=== PATIENT | female | born 1985 | race African-American/Black ===

== ENCOUNTER 2017-05-28 21:12 | Emergency (ER) | payer SELFPAY ==
[~2017-05-28] VITALS: Ht 170.2 cm; Wt 67.0 kg
[2017-05-28 21:14] VITALS: BP 173/72; PULSE 71; RESP 15; TEMP 99.4; O2SAT 100
--- NOTE | 2017-05-28 23:14 | PD ---
HPI Chief Complaint: Abdominal Pain Time Seen by Provider: 23:01 Travel History International Travel<30 days: No Contact w/Intl Traveler<30days: No Traveled to known affect area: No History of Present Illness HPI 31yo F presents to the ED with c/o intermittent abdominal pain since January. States she had abnormal papsmear in February and is suppose to have cone biopsy but never did because she has no insurance. Pt has a strong family history of cervical cancer. Denies any fever, chest pain, n/v, dysuria, hematuria, vaginal bleeding or discharge, focal weakness or numbness. PFSH Past Medical History Cancer: Yes (Cervical CA cells removed; strong familiar hx for cervical CA) ?: Not Dilation and Curettage (D&C): Yes Past Surgical History Gynecologic Surgery: Yes (CA cells found in pap smears prior; had cancer cells removed prior) Social History Alcohol Use: No Tobacco Use: No Substance Use: No Allergies-Medications (Allergen,Severity, Reaction): Coded Allergies: No Known Allergies (Verified Allergy, Unknown, 05/28/17) Reported Meds & Prescriptions Reported Meds & Active Scripts Active Reported Aleve (Naproxen Sodium) 220 Mg Capsule 220 Mg PO DAILY Review of Systems Except as stated in HPI: all other systems reviewed are Neg Physical Exam Narrative GENERAL: 31yo F not in distress. SKIN: Focused skin assessment warm/dry. HEAD: Atraumatic. Normocephalic. CARDIOVASCULAR: Regular rate and rhythm. No murmur appreciated. RESPIRATORY: No accessory muscle use. Clear to auscultation. Breath sounds equal bilaterally. GASTROINTESTINAL: Abdomen soft, +TTP right of umbilicus. No TTP RLQ. No rebound tenderness or guarding. PELVIC: Yellow discharge. No CMT or adnexal tenderness bilaterally. MUSCULOSKELETAL: No obvious deformities. No clubbing. No cyanosis. No edema. NEUROLOGICAL: Awake and alert. No obvious cranial nerve deficits. Motor grossly within normal limits. Normal speech. PSYCHIATRIC: Appropriate mood and affect; insight and judgment normal. Data Data Last Documented VS Vital Signs Date Time Temp Pulse Resp B/P (MAP) Pulse Ox O2 Delivery O2 Flow Rate FiO2 05/29/17 00:30 76 16 123/67 (85) 99 Room Air 05/28/17 21:14 99.4 Orders Orders Complete Blood Count With Diff (05/28/17 23:09) Comprehensive Metabolic Panel (05/28/17 23:09) Urinalysis - C+S If Indicated (05/28/17 23:09) Ct Abd/Pel W Iv Contrast(Rout) (05/28/17 23:09) Iv Access Insert/Monitor (05/28/17 23:09) Ecg Monitoring (05/28/17 23:09) Oximetry (05/28/17 23:) Sodium Chloride 0.9% Flush (Ns Flush) (05/28/17 23:15) Ed Urine Pregnancytest Poc (05/28/17 23:09) Gc And Chlamydia Pcr (05/29/17 00:46) Wet Prep Profile (05/29/17 00:46) Iohexol 350 Inj (Omnipaque 350 Inj) (05/29/17 01:06) Fluconazole (Diflucan) (05/29/17 01:30) Metronidazole (Flagyl) (05/29/17 01:30) Ketorolac Inj (Toradol Inj) (05/29/17 01:30) Labs Laboratory Tests Test 05/28/17 22:15 05/29/17 00:10 05/29/17 00:25 Urine Color YELLOW Urine Turbidity HAZY Urine pH 6.5 Urine Specific [place] 1.043 Urine Protein 30 mg/dL Urine Glucose (UA) NEG mg/dL Urine Ketones NEG mg/dL Urine Occult Blood NEG Urine Nitrite NEG Urine Bilirubin NEG Urine Urobilinogen 4.0 MG/DL Urine Leukocyte Esterase LARGE Urine RBC 2 /hpf Urine WBC 6 /hpf Urine Squamous Epithelial Cells 7 /hpf Urine Amorphous Sediment RARE Urine Bacteria RARE /hpf Urine Mucus MANY /lpf Microscopic Urinalysis Comment CULT NOT INDICATED White Blood Count 7.5 TH/MM3 Red Blood Count 4.61 MIL/MM3 Hemoglobin 12.1 GM/DL Hematocrit 36.8 % Mean Corpuscular Volume 79.8 FL Mean Corpuscular Hemoglobin 26.3 PG Mean Corpuscular Hemoglobin Concent 33.0 % Red Cell Distribution Width 17.3 % Platelet Count 195 TH/MM3 Mean Platelet Volume 9.9 FL Neutrophils (%) (Auto) 41.1 % Lymphocytes (%) (Auto) 48.1 % Monocytes (%) (Auto) 7.7 % Eosinophils (%) (Auto) 2.3 % Basophils (%) (Auto) 0.8 % Neutrophils # (Auto) 3.1 TH/MM3 Lymphocytes # (Auto) 3.6 TH/MM3 Monocytes # (Auto) 0.6 TH/MM3 Eosinophils # (Auto) 0.2 TH/MM3 Basophils # (Auto) 0.1 TH/MM3 CBC Comment DIFF FINAL Differential Comment Blood Urea Nitrogen 9 MG/DL Creatinine 0.83 MG/DL Random Glucose 84 MG/DL Total Protein 7.9 GM/DL Albumin 3.8 GM/DL Calcium Level 8.4 MG/DL Alkaline Phosphatase 66 U/L Aspartate Amino Transf (AST/SGOT) 13 U/L Alanine Aminotransferase (ALT/SGPT) 17 U/L Total Bilirubin 0.3 MG/DL Sodium Level 137 MEQ/L Potassium Level 3.7 MEQ/L Chloride Level 106 MEQ/L Carbon Dioxide Level 25.8 MEQ/L Anion Gap 5 MEQ/L Estimat Glomerular Filtration Rate 96 ML/MIN Clue Cells (Wet Prep) PRESENT Vaginal Trichomonas (Wet Prep) NONE SEEN Vaginal Yeast (Wet Prep) PRESENT MDM Medical Decision Making Medical Screen Exam Complete: Yes Emergency Medical Condition: Yes Differential Diagnosis Bacterial vaginosis vs. trichomoniasis vs. cystitis vs. malignancy Narrative Course 31yo with intermittent abdominal pain for months. Pt has abnormal pap smear but has not followed up. Labs reviewed, no leukocytosis. CMP unremarkable. UA showed large leukocyte, I feel it is from vaginal discharge. WBC is only 6. Wet prep is positive for clue cells and vaginal yeast so will treat. Urine negative. Pt given toradol for pain with improvement. CT a/p showed nonvisualization of appendix. No inflammatory changes in right lower quadrant. Pt does not have RLQ pain and clinically do not think it is appendicitis. There is enlarged heterogeneous uterus with small amount of pelvic free fluid. Pt needs to follow up with [facility]. Informed pt of this. Will do mandatory referral. Diagnosis Primary Impression: Bacterial vaginosis Patient Instructions: General Instructions Departure Forms: Tests/Procedures Additional Instructions: Please follow up with [facility] when you get appointment from mandatory referral. Return to the ED if symptoms worsen. Med/Other Pt SpecificInfo: Prescription(s) given Scripts Acetaminophen (Tylenol) 325 Mg Tab 650 MG PO Q6H Y for PAIN SCALE 1 TO 4, #20 TAB 0 Refills Prov: Doris Hua DO 05/29/17 Metronidazole (Metronidazole) 500 Mg Tab 500 MG PO BID for Infection for 7 Days, #14 TAB 0 Refills Prov: Doris Hua DO 05/29/17 Disposition: 01 DISCHARGE HOME Condition: Stable Doris Hua DO May 28, 2017 23:14
[2017-05-28] MEDS ORDERED: SODIUM CHLORIDE 0.9% FLUSH 10 ML FLUSH IV FLUSH PRN (23:15)
[2017-05-28] MEDS ORDERED: NAPR220C22 PO (23:18)
[2017-05-29 00:30] VITALS: BP 123/67; PULSE 76; RESP 16; O2SAT 99
[2017-05-29 00:31] LABS: AUTOMATED NEUTROPHIL # 3.1 TH/MM3 (1.8-7.7); BASOPHIL # 0.1 TH/MM3 (0-0.2); BASOPHIL % 0.8 % (0.0-2.0); EOSINOPHIL # 0.2 TH/MM3 (0-0.4); EOSINOPHIL % 2.3 % (0.0-4.0); HEMATOCRIT 36.8 % (35.0-46.0); HEMOGLOBIN 12.1 GM/DL (11.6-15.3); LYMPH % 48.1 % (9.0-44.0); LYMPHOCYTE # 3.6 TH/MM3 (1.0-4.8); MEAN CELL VOLUME 79.8 FL (80.0-100.0); MEAN CORPUSCULAR HEMOGLOBIN 26.3 PG (27.0-34.0); MEAN PLATELET VOLUME 9.9 FL (7.0-11.0); MONO % 7.7 % (0.0-8.0); MONOCYTE # 0.6 TH/MM3 (0-0.9); NEUT % 41.1 % (16.0-70.0); PLATELET COUNT 195 TH/MM3 (150-450); RED BLOOD COUNT 4.61 MIL/MM3 (4.00-5.30); RED CELL DISTRIBUTION WIDTH 17.3 % (11.6-17.2); WHITE BLOOD COUNT 7.5 TH/MM3 (4.0-11.0)
[2017-05-29 00:35] LABS: AMORPHOUS SEDIMENT, URINE RARE; BACTERIA, URINE RARE /hpf; BILIRUBIN, URINE NEG (NEG); BLOOD, URINE NEG (NEG); GLUCOSE,URINE NEG (NEG); KETONE, URINE NEG (NEG); MUCUS URINE MANY /lpf (OCC); NITRITE,URINE NEG (NEG); PH, URINE 6.5 (5.0-8.5); SQUAMOUS EPITHELIAL CELL URINE 7 /hpf (0-5); URINE COLOR YELLOW (YELLW/STRAW); URINE LEUKOCYTE ESTERASE LARGE (NEG)
[2017-05-29 00:50] LABS: ALBUMIN 3.8 GM/DL (3.4-5.0); ALT (GPT) 17 U/L (10-53); AST (GOT) 13 U/L (15-37); BICARBONATE 25.8 MEQ/L (21.0-32.0); BLOOD UREA NITROGEN 9 MG/DL (7-18); CALCIUM 8.4 MG/DL (8.5-10.1); CHLORIDE 106 MEQ/L (98-107); CREATININE 0.83 MG/DL (0.50-1.00); GLOMERULAR FILTRATION RATE 96 ML/MIN (>89); GLUCOSE,RANDOM 84 MG/DL (74-106); SODIUM (NA) 137 MEQ/L (136-145)
[2017-05-29 00:53] LABS: ALKALINE PHOSPHATASE 66 U/L (45-117); TOTAL BILIRUBIN ADULT 0.3 MG/DL (0.2-1.0); TOTAL PROTEIN 7.9 GM/DL (6.4-8.2)
[2017-05-29] MEDS ORDERED: IOHEXOL 350 MG/ML 10 ML VIAL (for RAD DIAG) IVCONTRAST ONE (01:06)
--- NOTE | 2017-05-29 01:17 | RADRPT ---
EXAM DATE/TIME: 05/29/2017 00:46 [facility] COMPARISON: No previous studies available for comparison. INDICATIONS : Intermittent right lower abdominal pain. IV CONTRAST: 95 cc Omnipaque 350 (iohexol) IV ORAL CONTRAST: No oral contrast ingested. RADIATION DOSE: 6.64 CTDIvol (mGy) MEDICAL HISTORY : Cervical cancer cells removed. SURGICAL HISTORY : None. ENCOUNTER: Initial ACUITY: 4 - 6 months PAIN SCALE: 4/10 LOCATION: Right lower quadrant abdomen TECHNIQUE: Volumetric scanning of the abdomen and pelvis was performed. Using automated exposure control and ad justment of the mA and/or kV according to patient size, radiation dose was kept as low as reasonably achievable to obtain optimal diagnostic quality images. DICOM format image data is available electro nically for review and comparison. FINDINGS: LOWER LUNGS: The visualized lower lungs are clear. LIVER: Homogeneous density without lesion. There is no dilation of the biliary tree. No calcified gall[place] es. SPLEEN: Normal size without lesion. PANCREAS: Within normal limits. KIDNEYS: Normal in size and shape. There is no mass, stone or hydronephrosis. ADRENAL GLANDS: Within normal limits. VASCULAR: There is no aortic aneurysm. BOWEL/MESENTERY: The stomach, small bowel, and colon demonstrate no acute abnormality. There is no free intraperitone al air or fluid. Appendix not seen. No inflammatory changes right lower quadrant. ABDOMINAL WALL: Within normal limits. RETROPERITONEUM: There is no lymphadenopathy. BLADDER: No wall thickening or mass. REPRODUCTIVE: Large heterogeneous uterus. Small amount pelvic free fluid.. INGUINAL: There is no lymphadenopathy or hernia. MUSCULOSKELETAL: Within normal limits for patient age. CONCLUSION: 1. Nonvisualization of the appendix. No inflammatory changes right lower quadrant. 2. Enlarged heterogeneous uterus and small amount of pelvic free fluid. Sachin Spear MD on May 29, 2017 at 1:12 Board Certified Radiologist. This report was verified electronically.
[2017-05-29] MEDS ORDERED: METR500T10 PO (01:26)
[2017-05-29] MEDS ORDERED: TYLE325T PO (01:26)
[2017-05-29] MEDS ORDERED: FLUCONAZOLE 100 MG TAB PO ONE (01:30)
[2017-05-29] MEDS ORDERED: KETOROLAC TROMETHAMINE 30 MG/ML (IVP) VIAL IV PUSH ONE (01:30)
[2017-05-29] MEDS ORDERED: metroNIDAZOLE 500 MG TAB PO ONE (01:30)
[2017-05-29 02:26] VITALS: BP 123/67
== END 2017-05-29 02:31 | disposition home or self-care (01) ==
LOC: NEPD 21:12
DX: N76.0 Acute vaginitis (principal)
CPT/HCPCS: 74177; 80053; 81001; 84703; 85025; 87210; 87491; 87591; 96374; 99285; J1885; Q9967